=== PATIENT | female | born 1960 | race Caucasian/White ===

== ENCOUNTER 2016-12-31 13:53 | Emergency (ER) | payer SELFPAY ==
[2016-12-31 13:59] VITALS: BP 107/60; BMI 22.2
[2016-12-31] MEDS ORDERED: DECADRON INJ IM ONE (16:09)
[2016-12-31] MEDS ORDERED: TORADOL 60 MG VIAL IM ONE (16:09)
[2016-12-31] MEDS ORDERED: DECADRON INJ ONE (16:12)
--- NOTE | 2016-12-31 16:12 | DR.FBACK ---
HPI - Time Seen Time seen: 15:50 - PCP Primary Care Physician: [facility] - HPI Comment HPI Comment: HISTORY BELOW. - Complaint Chief Complaint Doctor Comments: LOW BACK PAIN TIMES 3 DAYS. HOME MEDICATION NOT HELPING. HISTORY CHRONIC BACK PAIN. NO DYSURIA OR TRAUMA. Chief Complaint:: PATIENT HAS BEEN HAVING SEVERE BACK PAIN FOR THE LAST 3 DAYS. - Reviewed Nurses Notes Review: Yes - Source History Provided: Patient - Mode of Arrival Mode of Arrival: Ambulatory - Timing Onset of Chief Complaint: 12/28/16 - Duration Duration: Constant Duration: Days - Location Back Pain Location: Lumbar Radiation To: None - Severity Severity: Moderate - Quality Quality: Aching, Sharp - Context Onset: Spontaneous Circumstance: Spontaneous History of: Chronic Back Pain - Modifying Factors Worsened By: Twisting - Associated Signs and Symptoms Back Pain Symptoms: None Numbness: None Weakness: None PMH - PMH Past Medical History: Yes Past Medical History: Arthritis, GERD Past Medical History Comment: FIBRO Past Surgical History: Yes Surgical History: Cholecystectomy, Hysterectomy - Family History History of Family Medical Conditions: No - Social History Does patient currently use any type of tobacco product: Yes Have you used tobacco products in the last 12 months: Yes Type of Tobacco Use: Cigarettes Does any household member use tobacco: No Alcohol Use: None Do you use any recreational Drugs:: No Lives With: Family Lives Where: Home - infectious screening In the last 2 months have you had wt loss of >10#?: NO Have you had fever, night sweats or hemotysis?: No Have you traveled outside the country in the last 6 months?: No Isolation: Standard ROS - Review of Systems Constitutional: No Symptoms Reported Eyes: No Symptoms Reported ENTM: No Symptoms Reported Respiratoy: No Symptoms Reported Cardiovascular: No Symptoms Reported Gastrointestinal/Abdominal: No Symptoms Reported Genitourinary: No Symptoms Reported Neurological: No Symptoms Reported Musculoskeletal: Back Pain, Back Integumentary: No Symptoms Reported Hematologic/Lymphatic: No Symptoms Reported Endocrine: No Symptoms Reported All Other Systems: Reviewed and Negative PE - Vitals Vital Signs: Temp Pulse Resp BP Pulse Ox 12/31/16 13:55 98.2 F 97 H 20 107/60 96 - General Limitations: No Limitations General Appearance: Alert - Head Head Exam: Normal Inspection - Eyes Eye exam: Normal Appearance - ENT ENT Exam: Normal External Ear Exam - Chest Chest Inspection: Symmetric Chest Wall Rise - Respiratory Respiratory Exam: Normal Lung Sounds Bilat Respiratory Exam: Bilateral Clear to Auscultation - Cardiovascular Cardiovascular Exam: Regular Rate, Normal Rhythm, Normal Heart Sounds - Abdominal Exam Abdominal Exam: Normal Bowel Sounds, Soft. negative: Tenderness - Genitourinary External Exam: Female: Deferred : Speculum Exam (Female): Deferred : Bimanual Exam (female): Deferred - Extremities Extremities Exam: Normal Inspection - Back Back Exam: Muscle Spasm, Paraspinal Tenderness - Neurological Neurological Exam: Alert, Oriented X3 - Psychiatric Psychiatric Exam: Normal Affect, Normal Mood - Skin Skin Exam: Normal Color MDM - Differential Diagnosis Differential Diagnosis: DJD, Musculoskeletal Pain, Strain Course - Treatment Treatment: SEE ORDERS. IM MED IN ED. PAIN IMPROVING. - Education/Counseling Education/Counseling: Patient, Education Educated On: Treatment, Diagnosis, Needs for Follow Up - Diagnosis Discharge Problem: Back pain Qualifiers: Back pain location: low back pain Chronicity: acute Back pain laterality: bilateral Sciatica presence: without sciatica Qualified Code(s): M54.5 - Low back pain - Discharge Plan Disposition: 01 HOME, SELF-CARE Condition: Stable Prescriptions: Ketorolac Tromethamine [TORADOL TAB 10 MG *] 10 mg PO TID PRN #15 tab PRN Reason: Prednisone [Prednisone Tab 10 mg] 10 mg PO QAM #10 tab - Follow ups/Referrals Follow ups/Referrals: Moan FALCONc [Primary Care Provider] - 3 days - Instructions Instructions: Back Pain, Adult, [id number] Additional Instructions: RETURN TO ED IF WORSE.
[2016-12-31] MEDS ORDERED: TORADOL 60 MG VIAL ONE (16:13)
[2016-12-31] MEDS ORDERED: TORADOL TAB PO PRN (16:28)
== END 2016-12-31 16:41 | disposition home or self-care (01) ==
LOC: ER 14:05
DX: M54.5 Low back pain (principal)
CPT/HCPCS: 96372; 99282; J1100; J1885